=== PATIENT | female | born 1940 | race Caucasian/White ===

== ENCOUNTER 2016-12-30 08:35 | Day surgery (SDC) | payer OTHER ==
[~2016-12-30] VITALS: Ht 172.7 cm; Wt 89.8 kg
[~2016-12-30 08:35] MED LIST: AMLODIPINE BESYL5 MG PO; ASPIR-LOW81 MG PO; ATORVASTATIN CA20 MG PO; ELIQUIS5 MG PO; FISH OIL 1,0001 EAC7 PO; FISH OIL300 MG PO; LO-DOSE ASPIRIN81 M2 PO; LOPRESSOR50 MG PO; METOPROLOL SUCC25 MG PO; METOPROLOL TART50 MG PO; TOPROL XL25 MG PO; VALSARTAN160 MG PO; VITAMIN D31000 UNIT PO
[2016-12-30 15:55] VITALS: BP 145/72
[2016-12-30 19:52] VITALS: BP 135/78
[2016-12-30 23:22] VITALS: BP 141/63
[2016-12-31 04:14] VITALS: BP 139/58
[2016-12-31 07:33] VITALS: BP 139/80
== END 2016-12-31 11:35 | disposition home or self-care (01) ==
LOC: CATH 08:35 → 2SOUTH 14:12 → 4EAST 15:09
DX: I48.91 Unspecified atrial fibrillation (principal); I49.5 Sick sinus syndrome; I25.2 Old myocardial infarction; R55 Syncope and collapse; I47.2 Ventricular tachycardia; E78.5 Hyperlipidemia, unspecified; I10 Essential (primary) hypertension; Z86.718 Personal history of other venous thrombosis and embolism
CPT/HCPCS: 93005; C1894; C1898; C1899; G0378; J0690; J1200; J2250; J2405; J3010; J3370; J7050; S0020

== ENCOUNTER 2017-05-08 09:05 | Day surgery (SDC) | payer OTHER ==
[~2017-05-08] VITALS: Ht 172.7 cm; Wt 99.0 kg
[~2017-05-08 09:05] MED LIST changes: +AMIODARONE HCL200 MG PO
== END 2017-05-08 11:33 | disposition home or self-care (01) ==
LOC: CATH 09:05
PROC: 5A2204Z Restoration of Cardiac Rhythm, Single (ICD-10-PCS; principal; 2017-05-08)
DX: I48.0 Paroxysmal atrial fibrillation (principal); Z86.74 Personal history of sudden cardiac arrest; Z95.810 Presence of automatic (implantable) cardiac defibrillator; I11.9 Hypertensive heart disease without heart failure; I25.2 Old myocardial infarction; Z86.718 Personal history of other venous thrombosis and embolism; I70.202 Unspecified atherosclerosis of native arteries of extremities, left leg; E78.5 Hyperlipidemia, unspecified; Z79.82 Long term (current) use of aspirin; Z79.01 Long term (current) use of anticoagulants
CPT/HCPCS: 93005

== ENCOUNTER 2017-07-03 09:31 | Day surgery (SDC) | payer OTHER | END 2017-07-03 13:26 | disposition home or self-care (01) | LOC: CATH 09:31 | PROC: 5A2204Z Restoration of Cardiac Rhythm, Single (ICD-10-PCS; principal; 2017-07-03) | DX: I48.1 Persistent atrial fibrillation (principal); I45.81 Long QT syndrome; I10 Essential (primary) hypertension; I73.9 Peripheral vascular disease, unspecified; Z79.01 Long term (current) use of anticoagulants; Z79.82 Long term (current) use of aspirin; Z86.74 Personal history of sudden cardiac arrest; Z86.718 Personal history of other venous thrombosis and embolism; I25.2 Old myocardial infarction; Z95.810 Presence of automatic (implantable) cardiac defibrillator | CPT/HCPCS: 93005; J2250 ==

== ENCOUNTER 2018-01-31 13:10 | Emergency (ER) | payer OTHER ==
[~2018-01-31] VITALS: Ht 172.7 cm; Wt 98.3 kg
[2018-01-31 15:04] LABS: APPEARANCE SL.HAZY ((CLEAR)); BILIRUBIN NEGATIVE; BLOOD NEGATIVE; COLOR YELLOW ((YELLOW)); GLUCOSE (STRIP) NEGATIVE; KETONES NEGATIVE; LEUKOCYTES NEGATIVE; NITRITE NEGATIVE; PROTEIN (STRIP) NEGATIVE; SPECIFIC GRAVITY 1.021 (1.000-1.030); UROBILINOGEN 0.2 MG/DL (0.2-1.0)
[2018-01-31 15:07] LABS: BACTERIA RARE /HPF; EPITHELIAL CELLS 2+ /HPF; MUCUS TRACE /LPF; RED BLOOD CELLS 0-5 /HPF (0-5); UCUL ADDED? NO; WHITE BLOOD CELLS 0-5 /HPF (0-5)
[2018-01-31] MEDS ORDERED: PREDNISONE20 MG PO (15:44)
[2018-01-31] MEDS ORDERED: FLEXERIL10 MG PO (15:44)
[2018-01-31] MEDS ORDERED: LIDODERM 5% P1 PATCH TD (15:44)
[2018-01-31 16:05] VITALS: BP 122/64
[2018-01-31] MEDS ORDERED: VALIUM5 MG PO (16:09)
== END 2018-01-31 16:06 | disposition home or self-care (01) ==
LOC: EME 13:10
PROVIDERS: Nurse Practitioner Family
DX: M54.31 Sciatica, right side (principal); Z79.82 Long term (current) use of aspirin
CPT/HCPCS: 72100; 81003; 82948; 99281; 99284; J7512